=== PATIENT | male | born 1990 | race Two or more races ===

== ENCOUNTER 2024-04-24 09:37 | Outpatient (REF) | payer OTHER, SELFPAY ==
--- NOTE | ~2024-04-24 | XR_ITS ---
EXAMINATION: XR CERVICAL SPINE CLINICAL INFORMATION: Neck pain COMPARISON: None available. TECHNIQUE: 6 views of the cervical spine FINDINGS: Bone mineralization is normal. Mild multilevel cervical spondylosis with mild loss of disc space height at C6-C7 alignment maintained. XR/XR cervical spine 5V IMPRESSION: Mild multilevel cervical spondylosis with mild loss of disc space height at C6-C7.
== END 2024-04-24 09:38 | disposition home or self-care (01) ==
LOC: HO.XRAY 09:37
PROVIDERS: Visit Provider Nurse Practitioner Women's Health
DX: M54.2 Cervicalgia (principal)
CPT/HCPCS: 72050